=== PATIENT | female | born 1995 | race Caucasian/White ===

== ENCOUNTER → 2017-02-05 | Outpatient (CLI) | payer OTHER ==
[2017-02-05 15:40] LABS: HEMOGLOBIN 14.7 g/dL (12.2-16.2); LYMPH # 2.1 K/mm3 (0.7-4.5); LYMPH % 25.4 % (10-50.0)
[2017-02-05 15:48] LABS: STREP SCREEN (RAPID) NEGATIVE
== END ==
LOC: LAB 15:17
PROVIDERS: Internal Medicine
DX: J03.90 Acute tonsillitis, unspecified (principal); R59.0 Localized enlarged lymph nodes